=== PATIENT | female | born 1975 | race Caucasian/White ===

== ENCOUNTER 2021-04-08 04:13 | Emergency (ER) | payer OTHER, BC ==
[~2021-04-08] VITALS: Ht 162.6 cm; Wt 77.1 kg
[2021-04-08] MEDS ORDERED: THYR60 PO (05:06)
[2021-04-08] MEDS ORDERED: LEVSOD25 PO (05:06)
[2021-04-08] MEDS ORDERED: ONDA4ODT MM (06:34)
== END 2021-04-08 07:58 | disposition home or self-care (01) ==
LOC: ER 04:13
DX: S06.0X1A Concussion with loss of consciousness of 30 minutes or less, initial encounter (principal); S01.01XA Laceration without foreign body of scalp, initial encounter; E03.9 Hypothyroidism, unspecified; Z79.899 Other long term (current) drug therapy; W01.0XXA Fall on same level from slipping, tripping and stumbling without subsequent striking against object, initial encounter
CPT/HCPCS: 12002; 70450; 72125; 93005; 93010; 96374-59; 96375-59; 99284-25; J1885; J2405